=== PATIENT | female | born 2000 | race Asian ===

== ENCOUNTER → 2025-04-26 08:07 | Outpatient (REF) | payer OTHER, SELFPAY | LOC: REG 08:07 | PROVIDERS: ATTENDING PHYSICIAN Advanced Practice Midwife | DX: Z34.90 Encounter for supervision of normal pregnancy, unspecified, unspecified trimester (principal) | CPT/HCPCS: 36415; 86850; 86900; 86901; 96372; J2790 ==

== ENCOUNTER 2025-05-19 21:47 | Observation (INO) | payer OTHER, SELFPAY ==
[2025-05-19 22:09] VITALS: BP 106/71; BMI 25.2
== END 2025-05-19 22:43 | disposition home or self-care (01) ==
LOC: LDRP 21:47
PROVIDERS: ADMITTING PHYSICIAN Obstetrics & Gynecology; FAMILY PHYSICIAN Family Medicine
DX: O41.93X0 Disorder of amniotic fluid and membranes, unspecified, third trimester, not applicable or unspecified (principal); Z3A.31 31 weeks gestation of pregnancy
CPT/HCPCS: G0378